=== PATIENT | male | born 1970 | race Caucasian/White ===

== ENCOUNTER 2018-04-07 14:22 | Emergency (ER) | payer OTHER ==
[2018-04-07] MEDS ORDERED: CYCLOBENZAPRINE 10 MG TAB ONE ×2 (14:46→14:54)
[2018-04-07] MEDS ORDERED: MEPERIDINE HCL 50 MG/ML AMP ONE ×2 (14:46→14:54)
[2018-04-07] MEDS ORDERED: KETOROLAC 30 MG/ML INJ ONE ×2 (14:46→14:55)
--- NOTE | 2018-04-07 16:03 | RAD REPORT ---
EXAM DESCRIPTION: RAD - C Spine Ap/Lat - 04/07/2018 3:32 pm CLINICAL HISTORY: Neck pain, cervicalgia COMPARISON: None. FINDINGS: Cervical bodies are normal in height and alignment. No fracture or acute bony process seen . C5-C7 fusion changes are present. Hardware is well positioned. No hardware fracture or positioning abnormality. Normal disc height in the upper cervical spine. No fracture or acute finding. No alignme nt abnormality. There is no prevertebral soft tissue thickening or other suspicious soft tissue finding. IMPRESSION: C5-C7 fusion changes with no acute or suspicious finding. C1-C4 region of the cervical spine without acute or suspicious finding.
--- NOTE | 2018-04-07 16:03 | RAD REPORT ---
EXAM DESCRIPTION: Shoulder Right 2 View - 04/07/2018 3:31 pm CLINICAL HISTORY: Shoulder pain, arm pain, lifting injury COMPARISON: None. TECHNIQUE: Internal and external rotation views of the right shoulder were obtained. FINDINGS: There is no fracture or dislocation. AC joint is normal in appearance. No acute or suspici ous findings. IMPRESSION: Negative two-view right shoulder examination.
--- NOTE | 2018-04-07 16:43 | EDPHYS ---
Physician Documentation [facility] Name: Ryder Nicholson Age: 47 yrs Sex: Male : 1970 Arrival Date: 04/07/2018 Time: 14:26 Bed 5 Private MD: ED Physician Jac Gillespie HPI: 04/07 14:53 This 47 yrs old Male presents to ER via Ambulatory with complaints of rn Shoulder Injury. 14:53 The patient or guardian complains of an injury, pain. right shoulder. Onset: The rn symptoms/episode began/occurred today. Modifying factors: the symptoms are alleviated by nothing. The symptoms are aggravated by lifting weight. The patient has experienced similar episodes in the past. Reports chronic shoulder and neck pain, today lifting heavy patient at abnormal positioning, felt instant pop and pain with ROM. No weakness. Historical: - Allergies: 14:33 No Known Allergies; aj1 - Home Meds: 14:33 Protonix 40 mg Oral TbEC 1 tab once daily [Active]; aj1 - PMHx: 14:33 Back pain; C4-7 fusion with possible C5 removal; aj1 - PSHx: 14:33 Cholecystectomy; knee (right); Vasectomy; aj1 - Immunization history:: Flu vaccine is up to date. - Social history:: Smoking status: Patient uses tobacco products, smokes one pack cigarettes per day. - Ebola Screening: : No symptoms or risks identified at this time. - Family history:: not pertinent. - Hospitalizations: : No recent hospitalization is reported. ROS: 14:53 Constitutional: Negative for fever, chills, and weight loss, Back: Negative for injury rn and pain, MS/Extremity: + right shoulder pain and injury Neuro: Negative for headache, weakness, numbness, tingling, and seizure. Exam: 14:54 Constitutional: This is a well developed, well nourished patient who is awake, alert, rn in pain Neck: Trachea midline, no thyromegaly or masses palpated, and no cervical lymphadenopathy. Supple, full range of motion without nuchal rigidity, or vertebral point tenderness. No Meningismus. MS/ Extremity: Pulses equal, no cyanosis. Neurovascular intact. Painful ROM with tenderness along anterior right shoulder joint and superior right shoulder joint Neuro: Awake and alert, GCS 15, oriented to person, place, time, and situation.Motor strength 5/5 in all extremities. Sensory grossly intact. Vital Signs: 14:33 BP 135 / 84; Pulse 93; Resp 18; Temp 98.2(O); Pulse Ox 97% on R/A; Weight 89.81 kg; aj1 Height 5 ft. 9 in. (175.26 cm); Pain 10/10; 15:59 BP 124 / 90; Pulse 69; Resp 18; Pulse Ox 96% on R/A; aj1 14:33 Body Mass Index 29.24 (89.81 kg, 175.26 cm) aj1 MDM: 14:26 Patient medically screened. rn 16:41 Differential diagnosis: Anterior dislocation without fracture, glenoid fracture, DJD, rn tendonitis. Data reviewed: vital signs, nurses notes, radiologic studies, plain films, and as a result, I will discharge patient. Counseling: I had a detailed discussion with the patient and/or guardian regarding: the historical points, exam findings, and any diagnostic results supporting the discharge/admit diagnosis, radiology results, the need for outpatient follow up, to return to the emergency department if symptoms worsen or persist or if there are any questions or concerns that arise at home. Special discussion: I discussed with the patient/guardian in detail that at this point there is no indication for admission to the hospital. It is understood, however, that if the symptoms persist or worsen the patient needs to return immediately for re-evaluation. Further emergent ED testing is not indicated at this point in time. I discussed with the patient/guardian in detail the need to arrange with the PCP or specialist further outpatient testing, MRI. 04/07 14:39 Order name: XRAY Shoulder RIGHT 2 view; Complete Time: 16:19 rn 04/07 14:39 Order name: XRAY C Spine Ap/lat; Complete Time: 16: rn 04/07 15:48 Order name: Sling; Complete Time: 16: rn 04/07 16:55 Order name: Shoulder Immobilizer; Complete Time: 16:55 iw Administered Medications: 14:52 Drug: Flexeril 10 mg Route: PO; aj1 16:06 Follow up: Response: No adverse reaction aj1 14:52 Drug: TORadol 60 mg Route: IM; Site: right gluteus; aj1 16:05 Follow up: Response: No adverse reaction aj1 14:53 Drug: Demerol 50 mg Route: IM; Site: right deltoid; aj1 16:06 Follow up: Response: No adverse reaction aj1 Disposition: 04/07/18 16:42 Discharged to Home. Impression: Pain in right shoulder, Strain of muscle(s) and tendon(s) of the rotator cuff of right shoulder. - Condition is Stable. - Discharge Instructions: Arthralgia, Rotator Cuff Tendinitis, Shoulder Pain. - Prescriptions for Tylenol- Codeine #3 300-30 mg Oral Tablet - take 1 tablet by ORAL route every 6 hours As needed; 20 tablet. Cyclobenzaprine 10 mg Oral Tablet - take 1 tablet by ORAL route every 8 hours As needed; 20 tablet. Medrol (Timothy) 4 mg Oral Tablets, Dose Pack - take 1 tablet by ORAL route as directed - follow package instructions; 1 packet. - Medication Reconciliation Form, Thank You Letter, Antibiotic Education, Prescription Opioid Use form. - Work release form (04/07/18 18:13). bd - Follow up: Angelo Pandey MD; When: As needed; Reason: Recheck today's complaints, Re-evaluation by your physician. - Problem is new. - Symptoms have improved. Signatures: Dispatcher [employer] EDMS Alanna Canales RN RN aj1 Arleen De Los Santos RN RN iw Jac Gillespie MD MD rn Dirrim, Barbara bd Corrections: (The following items were deleted from the chart) 17:01 16:42 04/07/2018 16:42 Discharged to Home. Impression: Pain in right shoulder; Strain aj1 of muscle(s) and tendon(s) of the rotator cuff of right shoulder. Condition is Stable. Forms are Medication Reconciliation Form, Thank You Letter, Antibiotic Education, Prescription Opioid Use. Follow up: Dr. Angelo Pandey; When: As needed; Reason: Recheck today's complaints, Re-evaluation by your physician. Problem is new. Symptoms have improved. rn
--- NOTE | 2018-04-07 16:43 | ER ---
Nurse's Notes [facility] Name: Ryder Nicholson Age: 47 yrs Sex: Male : 1970 Arrival Date: 04/07/2018 Time: 14:26 Bed 5 Private MD: Diagnosis: Pain in right shoulder;Strain of muscle(s) and tendon(s) of the rotator cuff of right shoulder Presentation: 04/07 14:30 Presenting complaint: Patient states: He was moving a patient from bed to stretcher aj1 when suddenly he felt his shoulder pop and then burning and pain. Pain radiated to pectoral muscle and upper back. ROM limited to left shoulder, left radial pulse palpable and strong. Transition of care: patient was not received from another setting of care. Onset of symptoms was April 07, 2018. Risk Assessment: Do you want to hurt yourself or someone else? Patient reports no desire to harm self or others. Initial Sepsis Screen: Does the patient meet any 2 criteria? No. Patient's initial sepsis screen is negative. Does the patient have a suspected source of infection? No. Patient's initial sepsis screen is negative. Care prior to arrival: None. 14:30 Method Of Arrival: Ambulatory aj 14:30 Acuity: KAMILA 3 aj1 Triage Assessment: 14:33 General: Appears in no apparent distress. uncomfortable, Behavior is calm, cooperative, aj1 appropriate for age. Pain: Complains of pain in anterior aspect of left shoulder and posterior aspect of left shoulder Pain radiates to left trapezius, left scapular area, left supraclavicular area, left clavicle and anterior aspect of left upper chest Pain currently is 10 out of 10 on a pain scale. Quality of pain is described as unable to describe. Historical: - Allergies: 14:33 No Known Allergies; aj1 - Home Meds: 14:33 Protonix 40 mg Oral TbEC 1 tab once daily [Active]; aj1 - PMHx: 14:33 Back pain; C4-7 fusion with possible C5 removal; aj1 - PSHx: 14:33 Cholecystectomy; knee (right); Vasectomy; aj1 - Immunization history:: Flu vaccine is up to date. - Social history:: Smoking status: Patient uses tobacco products, smokes one pack cigarettes per day. - Ebola Screening: : No symptoms or risks identified at this time. - Family history:: not pertinent. - Hospitalizations: : No recent hospitalization is reported. Screenin:39 Abuse screen: Denies threats or abuse. Denies injuries from another. Nutritional aj1 screening: No deficits noted. Tuberculosis screening: No symptoms or risk factors identified. 17:00 Fall Risk None identified. aj1 Assessment: 14:39 General: Appears uncomfortable, Behavior is calm, cooperative, appropriate for age. aj1 Pain: Complains of pain in posterior aspect of left shoulder and anterior aspect of left shoulder Pain radiates to left trapezius, left scapular area, left supraclavicular area, left clavicle and anterior aspect of left upper chest Pain currently is 10 out of 10 on a pain scale. Quality of pain is described as unable to describe. Neuro: Level of Consciousness is awake, alert, obeys commands, Oriented to person, place, time, situation, Speech is normal, Facial symmetry appears normal. Cardiovascular: Patient's skin is warm and dry. Respiratory: Airway is patent Respiratory effort is even, unlabored, Respiratory pattern is regular, symmetrical. GI: No signs and/or symptoms were reported involving the gastrointestinal system. : No signs and/or symptoms were reported regarding the genitourinary system. EENT: No signs and/or symptoms were reported regarding the EENT system. Derm: No signs and/or symptoms reported regarding the dermatologic system. Skin is pink, warm \T\ dry. normal. Musculoskeletal: Capillary refill < 3 seconds, in left fingers. Range of motion: limited in left shoulder radial pulse palpable and strong. 15:30 Reassessment: Patient states that the pain medication is wearing off and he would like aj1 something else for pain. Notified Dr. Gillespie. 16:00 Reassessment: Patient states that he is still in pain and would like something else for aj1 pain. Notified Dr. Gillespie. 16:15 Reassessment: BETH Bacon, charge nurse at bedside talking to patient. aj1 16:45 Reassessment: Patient changed from sling to shoulder immbolizer by BETH Bacon. Patient aj1 states that he fells that this supports his arm better than the sling did. Vital Signs: 14:33 BP 135 / 84; Pulse 93; Resp 18; Temp 98.2(O); Pulse Ox 97% on R/A; Weight 89.81 kg; aj1 Height 5 ft. 9 in. (175.26 cm); Pain 10/10; 15:59 BP 124 / 90; Pulse 69; Resp 18; Pulse Ox 96% on R/A; aj1 14:33 Body Mass Index 29.24 (89.81 kg, 175.26 cm) aj1 ED Course: 14:26 Patient arrived in ED. iw 14:26 Jac Gillespie MD is Attending Physician. rn 14:29 Alanna Canales RN is Primary Nurse. aj1 14:33 Triage completed. aj1 14:33 Arm band placed on. aj1 14:39 Patient has correct armband on for positive identification. Bed in low position. Call aj1 light in reach. Side rails up X 1. 14:39 No provider procedures requiring assistance completed. aj1 15:28 Patient moved to radiology via wheelchair. jb2 15:28 X-ray completed. Patient tolerated procedure well. jb2 15:28 Patient moved back from radiology. jb2 15:29 XRAY Shoulder RIGHT 2 view In Process Unspecified. EDMS 15:29 XRAY C Spine Ap/lat In Process Unspecified. EDMS 16:42 Angelo Pandey MD is Referral Physician. rn 17:00 Patient did not have IV access during this emergency room visit. aj1 Administered Medications: 14:52 Drug: Flexeril 10 mg Route: PO; aj1 16:06 Follow up: Response: No adverse reaction aj1 14:52 Drug: TORadol 60 mg Route: IM; Site: right gluteus; aj1 16:05 Follow up: Response: No adverse reaction aj1 14:53 Drug: Demerol 50 mg Route: IM; Site: right deltoid; aj1 16:06 Follow up: Response: No adverse reaction aj1 Outcome: 16:42 Discharge ordered by . rn 17:00 Discharged to home ambulatory. aj1 17:00 Condition: good 17:00 Discharge instructions given to patient, Instructed on discharge instructions, follow up and referral plans. no drinking with medication, no driving heavy equipment, medication usage, Demonstrated understanding of instructions, follow-up care, medications, Prescriptions given X 3. 17:01 Patient left the ED. aj1 Signatures: Dispatcher [employer] EDMS Alanna Canales RN RN aj1 Beck Husain jb2 Arleen De Los Santos RN RN iw Jac Gillespie MD MD rn
== END 2018-04-07 17:01 | disposition home or self-care (01) ==
LOC: ER 14:22
DX: S46.011A Strain of muscle(s) and tendon(s) of the rotator cuff of right shoulder, initial encounter (principal); X50.0XXA Overexertion from strenuous movement or load, initial encounter; Y93.89 Activity, other specified; Y92.9 Unspecified place or not applicable; F17.210 Nicotine dependence, cigarettes, uncomplicated
CPT/HCPCS: 72040; 96372; 99283; J2175

== ENCOUNTER 2019-01-02 15:55 | Emergency (ER) | payer OTHER ==
[2019-01-02] MEDS ORDERED: NA CHLORIDE 0.9% 1,000 ML ONE (16:42)
[2019-01-02] MEDS ORDERED: MORPHINE 4 MG/ML SYR ONE ×2 (16:46→17:30)
[2019-01-02] MEDS ORDERED: ONDANSETRON 4 MG/2 ML VIAL ONE (16:47)
[2019-01-02 16:49] LABS: Urine Blood TRACE (NEG); Urine Glucose NEGATIVE (NEG); Urine Protein NEGATIVE (NEG)
[2019-01-02 16:51] LABS: Absolute Lymphocytes (CBC) 2.9 K/uL (0.7-4.9); Absolute Monocytes 1.2 K/uL (0.1-1.3); Absolute Neutrophil 6.1 K/uL (1.8-8.0); Basophils % 0.8 % (0-1.3); Eosinophils % 2.1 % (0-4.4); Hematocrit 48.9 % (39.6-49.0); Lymphocytes % 27.8 % (15.3-44.8); MPV 8.3 fL (7.6-11.3); Monocytes % 11.5 % (3.3-12.3); RBC Red Blood Cell Count 5.46 M/uL (4.33-5.43)
[2019-01-02 17:09] LABS: Urine RBC <5 /HPF (NONE SEEN)
[2019-01-02 17:10] LABS: Urine Bacteria NONE SEEN /HPF (NONE SEEN); Urine Culture Reflex Order NOT NEEDED; Urine Mucus 1+ /HPF (NONE SEEN)
[2019-01-02 17:18] LABS: ALT/SGPT 59 U/L (12-78); AST/SGOT 15 U/L (15-37); Albumin 4.1 g/dL (3.4-5.0); Alkaline Phosphatase 82 U/L (45-117); BUN Blood Urea Nitrogen 17 mg/dL (7-18); Bicarbonate 24 mmol/L (21-32); Bilirubin Direct 0.1 mg/dL (0-0.2); Bilirubin Total 0.4 mg/dL (0.2-1.0); Glucose Level 111 mg/dL (74-106); Lipase 126 U/L (73-393); Potassium 4.1 mmol/L (3.5-5.1); Protein, Total 7.4 g/dL (6.4-8.2); Sodium Level 139 mmol/L (136-145)
[2019-01-02] MEDS ORDERED: KETOROLAC 30 MG/ML INJ ONE (17:30)
--- NOTE | 2019-01-02 17:42 | RAD REPORT ---
EXAM DESCRIPTION: CTAbdomen Pelvis W Contrast - 01/02/2019 5:33 pm CLINICAL HISTORY: Abdominal pain. mid back pain;Abd pain COMPARISON: Abdomen Pelvis W Contrast dated 06/24/2017; Abdomen Pelvis W Contrast dated 04/17/2017; Abdomen Pelvis W Contrast dated 02/02/2017 TECHNIQUE: Biphasic CT imaging of the abdomen and pelvis was performed with 100 ml non-ionic IV cont rast. All CT scans are performed using dose optimization technique as appropriate and may include automated exposure control or mA/KV adjustment according to patient size. FINDINGS: The lung bases are clear. Diffuse fatty liver. Cholecystectomy clips. The spleen, pancreas, adrenal glands and left kidney are within normal limits. Right-sided caliceal diverticulum with tiny stone suspected on the right measur ing 2 cm. No bowel obstruction, free air, free fluid or abscess. Small fat containing umbilical hernia. The margaret endix is normal. No evidence of significant lymphadenopathy. No suspicious bony findings. IMPRESSION: No acute intra-abdominal or pelvic finding. 2 cm right renal caliceal diverticulum containing a tiny calculus. Fatty liver.
--- NOTE | 2019-01-02 18:05 | EDPHYS ---
Physician Documentation [facility] Name: Ryder Nicholson Age: 48 yrs Sex: Male : 1970 Arrival Date: 01/02/2019 Time: 15:57 Bed 6 Private MD: Daniel Woodruff ED Physician Brian Royal HPI: 01/02 16:25 This 48 yrs old Male presents to ER via Ambulatory with complaints of cp Abdominal Pain. 16:25 The patient presents with abdominal pain mid and upper abdomen. Associated signs and cp symptoms: Pertinent positives: mid and lower back pain. The symptoms are described as waxing/waning. Modifying factors: the symptoms are aggravated by movement, pressure. Pain started 2 days ago in mid back area. Pain now radiates to mid and upper abdomen. Historical: - Allergies: 16:03 No Known Allergies; hj - Home Meds: 16:03 Protonix 40 mg Oral TbEC 1 tab once daily [Active]; hj - PMHx: 16:03 Back pain; C4-7 fusion with possible C5 removal; hj - PSHx: 16:03 Cholecystectomy; knee (right); Vasectomy; hj - Immunization history:: Adult Immunizations up to date. - Social history:: Smoking status: Patient/guardian denies using tobacco, Patient/guardian denies using alcohol. - Ebola Screening: : Patient negative for fever greater than or equal to 101.5 degrees Fahrenheit, and additional compatible Ebola Virus Disease symptoms Patient denies exposure to infectious person Patient denies travel to an Ebola-affected area in the 21 days before illness onset. ROS: 16:30 Constitutional: Negative for body aches, chills, fever, poor PO intake. cp 16:30 Eyes: Negative for injury, pain, redness, and discharge. cp 16:30 ENT: Negative for drainage from ear(s), ear pain, sore throat, difficulty swallowing, difficulty handling secretions. 16:30 Cardiovascular: Negative for chest pain, edema, palpitations. 16:30 Respiratory: Negative for cough, shortness of breath, wheezing. 16:30 Abdomen/GI: Positive for abdominal pain, Negative for vomiting, diarrhea, constipation, black/tarry stool, rectal bleeding. 16:30 Back: Positive for pain at rest, pain with movement, of the low back area and mid back area. 16:30 : Negative for urinary symptoms, testicular pain 16:30 Skin: Negative for cellulitis, rash. 16:30 Neuro: Negative for altered mental status, headache, weakness. 16:30 All other systems are negative. Exam: 16:42 Constitutional: The patient appears in no acute distress, alert, awake, cp non-diaphoretic, non-toxic, well developed, well nourished, uncomfortable. 16:42 Head/Face: Normocephalic, atraumatic. cp 16:42 Eyes: Periorbital structures: appear normal, Conjunctiva: normal, no exudate, no injection, Sclera: no appreciated abnormality, Lids and lashes: appear normal, bilaterally. 16:42 ENT: External ear(s): are unremarkable, Nose: is normal, Mouth: Lips: moist, Oral mucosa: pink and intact, moist, Posterior pharynx: is normal, airway is patent, no erythema, no exudate. 16:42 Chest/axilla: Inspection: normal, Palpation: is normal, no crepitus, no tenderness. 16:42 Cardiovascular: Rate: normal, Rhythm: regular, Pulses: Pulses are 2+ in right radial artery and left radial artery. Edema: is not appreciated, JVD: is not appreciated. 16:42 Respiratory: the patient does not display signs of respiratory distress, Respirations: normal, no use of accessory muscles, no retractions, no splinting, no tachypnea, labored breathing, is not present, Breath sounds: are clear throughout, no decreased breath sounds, no stridor, no wheezing. 16:42 Abdomen/GI: Inspection: abdomen appears normal, Bowel sounds: active, all quadrants, Palpation: soft, in all quadrants, moderate abdominal tenderness, in the abdomen diffusely, rebound tenderness, is not appreciated, involuntary guarding, is not appreciated. 16:42 Back: pain, that is severe, of the mid back area, ROM is painful, vertebral tenderness, is not appreciated, Straight leg raises: of both lower extremities does not illicit pain. 16:42 Skin: cellulitis, is not appreciated, no rash present. 16:42 Neuro: Orientation: to person, place \T\ time. Mentation: is normal, Cerebellar function: is grossly normal, Motor: moves all fours, strength is normal, Sensation: is normal. Vital Signs: 16:04 BP 115 / 90; Pulse 99; Resp 18; Temp 97.6(O); Pulse Ox 100% on R/A; Weight 97.98 kg; hj Height 5 ft. 8 in. (172.72 cm); Pain 6/10; 18:17 BP 126 / 79; Pulse 81; Resp 18; Temp 97.6; Pulse Ox 98% on R/A; la1 16:04 Body Mass Index 32.84 (97.98 kg, 172.72 cm) hj MDM: 16:10 Patient medically screened. cp 17:00 Differential diagnosis: bowel obstruction, diverticulitis, gastritis, pancreatitis, cp Pyelonephritis, Ureterolithiasis, urinary tract infection. 17:55 Physician consultation: Marily Don MD was called at 17:50, left message on voicemail. 18:04 Data reviewed: vital signs, nurses notes, lab test result(s), radiologic studies, CT cp scan. 18:04 Response to treatment: the patient's symptoms have markedly improved after treatment. Special discussion: Based on the patient's Hx, exam, and Dx evaluation, there is no indication for emergent surgery or inpatient Tx. It is understood by the patient/guardian that if the Sx's persist or worsen they need to return immediately for re-evaluation. 01/02 16:21 Order name: Basic Metabolic Panel; Complete Time: 17:21 cp 01/02 17:21 Interpretation: Normal except: CL 108; GLUC 111. cp 01/02 16:21 Order name: CBC with Diff; Complete Time: 17:00 cp 01/02 18:01 Interpretation: Normal except: RBC 5.46. cp 01/02 16:21 Order name: Creatinine for Radiology; Complete Time: 17:13 cp 01/02 16:21 Order name: Hepatic Function; Complete Time: 17:21 cp 01/02 16:21 Order name: Lipase; Complete Time: 17:21 cp 01/02 17:21 Interpretation: LIP 126; Reviewed. cp 01/02 16:21 Order name: Urine Microscopic Only; Complete Time: 17:13 cp 01/02 16:21 Order name: IV Saline Lock; Complete Time: 16:59 cp 01/02 16:41 Order name: Urine Dipstick--Ancillary (enter results); Complete Time: 17:00 eb 01/02 17:00 Interpretation: Normal except: UBLD TRACE. cp 01/02 17:02 Order name: CT Abd/Pelvis - W/Contrast: no oral contrast; Complete Time: 17:45 cp 01/02 16:21 Order name: Labs collected and sent; Complete Time: 16:59 cp 01/02 16:21 Order name: Urine Dipstick-Ancillary (obtain specimen); Complete Time: 17:00 cp Administered Medications: 16:48 Drug: NS 0.9% 1000 ml Route: IV; Rate: 1 bolus; Site: right antecubital; la1 18:20 Follow up: IV Status: Completed infusion la1 16:48 Drug: morphine 4 mg Route: IVP; Site: right antecubital; la1 18:18 Follow up: Response: No adverse reaction; Pain is decreased la1 16:48 Drug: Zofran 4 mg Route: IVP; Site: right antecubital; la1 18:18 Follow up: Response: No adverse reaction la1 17:23 Drug: morphine 4 mg Route: IVP; Site: right antecubital; la1 18:18 Follow up: Response: No adverse reaction; Pain is decreased la1 17:24 Drug: TORadol 30 mg Route: IVP; Site: right antecubital; la1 18:18 Follow up: Response: No adverse reaction la1 Disposition: 18:29 Co-signature as Attending Physician, Brian Royal MD. Disposition: 01/02/19 18:05 Discharged to Home. Impression: Calculus of kidney. - Condition is Stable. - Discharge Instructions: Kidney Stones. - Prescriptions for Diclofenac Sodium 75 mg Oral Tablet, Delayed Release (E.C.) - take 1 tablet by ORAL route 2 times per day; 20 tablet. Tramadol 50 mg Oral Tablet - take 1 tablet by ORAL route every 8 hours as needed; 15 tablet. - Medication Reconciliation Form, Thank You Letter, Antibiotic Education, Prescription Opioid Use form. - Follow up: Marily Don MD; When: 2 - 3 days; Reason: pain continues. - Problem is new. - Symptoms have improved. Signatures: Dispatcher [employer] EDMS Pedro Mir RN RN la1 Jalen Ambriz RN RN hj Page, Corey, EMILY PA Brian Evans MD MD Corrections: (The following items were deleted from the chart) 18:19 18:05 01/02/2019 18:05 Discharged to Home. Impression: Calculus of kidney. Condition is la1 Stable. Forms are Medication Reconciliation Form, Thank You Letter, Antibiotic Education, Prescription Opioid Use. Follow up: Marily Don; When: 2 - 3 days; Reason: pain continues. Problem is new. Symptoms have improved. cp
--- NOTE | 2019-01-02 18:05 | ER ---
Nurse's Notes [facility] Name: Ryder Nicholson Age: 48 yrs Sex: Male : 1970 Arrival Date: 01/02/2019 Time: 15:57 Bed 6 Private MD: Daniel Woodruff Diagnosis: Calculus of kidney Presentation: 01/02 16:02 Presenting complaint: Patient states: stomach pain started 2 days ago, last night it hj got worse; feels like my kidneys hurt too; denies fever and chills; denies N/V;. Transition of care: patient was not received from another setting of care. Onset of symptoms was January 02, 2019. Risk Assessment: Do you want to hurt yourself or someone else? Patient reports no desire to harm self or others. Initial Sepsis Screen: Does the patient meet any 2 criteria? No. Patient's initial sepsis screen is negative. Does the patient have a suspected source of infection? No. Patient's initial sepsis screen is negative. Care prior to arrival: None. 16:02 Method Of Arrival: Ambulatory 16:02 Acuity: KAMILA 3 hj Triage Assessment: 16:03 General: Appears in no apparent distress. uncomfortable, Behavior is calm, cooperative, hj appropriate for age. Pain: Complains of pain in abdomen. GI: Reports lower abdominal pain. Historical: - Allergies: 16:03 No Known Allergies; hj - Home Meds: 16:03 Protonix 40 mg Oral TbEC 1 tab once daily [Active]; hj - PMHx: 16:03 Back pain; C4-7 fusion with possible C5 removal; hj - PSHx: 16:03 Cholecystectomy; knee (right); Vasectomy; hj - Immunization history:: Adult Immunizations up to date. - Social history:: Smoking status: Patient/guardian denies using tobacco, Patient/guardian denies using alcohol. - Ebola Screening: : Patient negative for fever greater than or equal to 101.5 degrees Fahrenheit, and additional compatible Ebola Virus Disease symptoms Patient denies exposure to infectious person Patient denies travel to an Ebola-affected area in the 21 days before illness onset. Screenin:04 Abuse screen: Denies threats or abuse. Denies injuries from another. Nutritional hj screening: No deficits noted. Tuberculosis screening: No symptoms or risk factors identified. Fall Risk None identified. Assessment: 16:04 GI: Bowel sounds hj 16:47 General: Appears uncomfortable, Behavior is calm, cooperative. Pain: Complains of pain la1 in abdomen. Neuro: Level of Consciousness is awake, alert, obeys commands, Oriented to person, place, time, situation. Cardiovascular: Capillary refill < 3 seconds Patient's skin is warm and dry. Respiratory: Airway is patent Respiratory effort is even, unlabored, Respiratory pattern is regular, symmetrical, Breath sounds are clear bilaterally. GI: Abdomen is round non-distended, Bowel sounds present X 4 quads. Abd is soft X 4 quads Abdomen is tender to palpation in right lower quadrant and left lower quadrant. : No signs and/or symptoms were reported regarding the genitourinary system. Vital Signs: 16:04 BP 115 / 90; Pulse 99; Resp 18; Temp 97.6(O); Pulse Ox 100% on R/A; Weight 97.98 kg; hj Height 5 ft. 8 in. (172.72 cm); Pain 6/10; 18:17 BP 126 / 79; Pulse 81; Resp 18; Temp 97.6; Pulse Ox 98% on R/A; la1 16:04 Body Mass Index 32.84 (97.98 kg, 172.72 cm) hj ED Course: 15:57 Patient arrived in ED. rg4 15:58 Daniel Woodruff MD is Private Physician. rg4 16:03 Triage completed. hj 16:04 Arm band placed on right wrist. hj 16:04 Patient has correct armband on for positive identification. Placed in gown. Bed in low hj position. Call light in reach. Side rails up X 1. Adult w/ patient. 16:10 Cliff Soto PA is PHCP. cp 16:10 Brian Royal MD is Attending Physician. cp 16:30 Pedro Mir, BETH is Primary Nurse. la1 16:46 No provider procedures requiring assistance completed. Inserted saline lock: 20 gauge la1 in right antecubital area, using aseptic technique. Blood collected. 17:31 Patient moved back from CT. Patient moved back from radiology. mw3 17:32 CT completed. Patient tolerated procedure well. mw3 17:33 CT Abd/Pelvis - W/Contrast: no oral contrast In Process Unspecified. EDMS 18:03 Marily Don MD is Referral Physician. cp 18:19 IV discontinued, intact, bleeding controlled, No redness/swelling at site. Pressure la1 dressing applied. Administered Medications: 16:48 Drug: NS 0.9% 1000 ml Route: IV; Rate: 1 bolus; Site: right antecubital; la1 18:20 Follow up: IV Status: Completed infusion la1 16:48 Drug: morphine 4 mg Route: IVP; Site: right antecubital; la1 18:18 Follow up: Response: No adverse reaction; Pain is decreased la1 16:48 Drug: Zofran 4 mg Route: IVP; Site: right antecubital; la1 18:18 Follow up: Response: No adverse reaction la1 17:23 Drug: morphine 4 mg Route: IVP; Site: right antecubital; la1 18:18 Follow up: Response: No adverse reaction; Pain is decreased la1 17:24 Drug: TORadol 30 mg Route: IVP; Site: right antecubital; la1 18:18 Follow up: Response: No adverse reaction la1 Outcome: 18:05 Discharge ordered by MD. cp 18:19 Discharged to home ambulatory. la1 18:19 Condition: stable 18:19 Condition: good 18:19 Discharge instructions given to patient, Instructed on discharge instructions, follow up and referral plans. medication usage, Demonstrated understanding of instructions, follow-up care, medications, Prescriptions given X 2. 18:19 Patient left the ED. la1 Signatures: Dispatcher [employer] EDMS Pedro Mir RN RN la1 Jalen Ambriz RN RN hj Page, Corey, PA PA cp Garcia, Rubi 4 Kya Williamson mw3 Corrections: (The following items were deleted from the chart) 16:06 16:04 Pulse 99bpm; Resp 18bpm; Pulse Ox 100% RA; Temp 97.6F Oral; 97.98 kg; Height 5 hj ft. 8 in.; BMI: 32.8; Pain 6/10; hj
== END 2019-01-02 18:19 | disposition home or self-care (01) ==
LOC: ER 15:55
DX: N20.0 Calculus of kidney (principal); K76.0 Fatty (change of) liver, not elsewhere classified
CPT/HCPCS: 36415; 74177; 80048; 80076; 81003; 81015; 83690; 85025; 96361; 96374; 96375; 99284; J2405; J7030; Q9967